=== PATIENT | male | born 1990 | race Two or more races ===

== ENCOUNTER 2025-01-07 15:38 | Emergency (ER) | payer BC, OTHER ==
[~2025-01-07] VITALS: Ht 175.3 cm; Wt 81.8 kg
[2025-01-07 16:41] VITALS: PULSE 89; RESP 17; O2SAT 99
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
[2025-01-07 17:00] VITALS: PULSE 87; RESP 16; O2SAT 99
[2025-01-07] MEDS: ONDANSETRON HCL 4 MG/2 ML VIAL IV ONE (17:14)
[2025-01-07] MEDS: MORPHINE SULFATE 4 MG/ML SYR/VIAL IV ONE (17:15)
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
[2025-01-07 18:45] LABS: Hematocrit 40.0 % (41.0-53.0); Hemoglobin 13.6 g/dL (13.5-17.5); Mean Corpuscular Hemoglobin 30.3 pg (28.0-32.0); Mean Corpuscular Volume 89.1 fL (80.0-100.0); Nucleated Red Blood Cells % 0.1 %
[2025-01-07 19:03] LABS: Alanine Aminotransferase 30 U/L (7-40); Albumin 4.2 g/dL (3.2-4.8); Alkaline Phosphatase 57 U/L (46-116); Anion Gap 11 (5-15); BUN/Creatinine Ratio 19.4 (10.0-20.0); Bilirubin, Total 0.5 mg/dL (0.2-1.0); Blood Urea Nitrogen 21 mg/dL (9-23); Calcium 8.9 mg/dL (8.7-10.4); Carbon Dioxide 24 mmol/L (20-31); Chloride 105 mmol/L (98-107); Glucose 83 mg/dL (74-106); Potassium 3.9 mmol/L (3.5-5.1); Sodium 140 mmol/L (136-145); Total Protein 6.5 g/dL (5.7-8.2)
[2025-01-07] MEDS: IOHEXOL 350 MG/ML 100ML IJ ONE (19:22)
[2025-01-07] MEDS: fentaNYL CITRATE 100 MCG/2 ML VL ONE (19:22)
[2025-01-07] MEDS: fentaNYL CITRATE 100 MCG/2 ML VL IV ONE ×2 (19:23→22:56)
[2025-01-07 19:50] VITALS: PULSE 63; RESP 17; O2SAT 99
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
[2025-01-07 22:52] LABS: Urine Protein, UAD TRACE (Negative)
[2025-01-08 00:04] VITALS: BP 125/70; PULSE 82; RESP 16; TEMP 98.3; O2SAT 99
== END 2025-01-08 00:22 | disposition short-term general hospital (02) ==
LOC: ER 15:38
DX: S22.080A Wedge compression fracture of T11-T12 vertebra, initial encounter for closed fracture (principal); R42 Dizziness and giddiness; X58.XXXA Exposure to other specified factors, initial encounter; Y93.89 Activity, other specified; Y92.410 Unspecified street and highway as the place of occurrence of the external cause; Y99.8 Other external cause status
CPT/HCPCS: 36415; 70450; 71275; 72125; 72128; 72131; 74176; 80053; 81001; 84484; 85025; 96374; 96375; 96376; 99285; J2270; J2405; J3010; Q9967